=== PATIENT | male | born 1980 | race Two or more races ===

== ENCOUNTER 2018-07-29 14:43 | Emergency (ER) | payer SELFPAY ==
[~2018-07-29] VITALS: Ht 172.7 cm; Wt 81.6 kg
--- NOTE | 2018-07-29 15:09 | NUR ---
ED Nurse Note: patient walked into ED c/o hematuria that started this morning. pain at left anterior lower abdoment radiating to his lower back starte this morning.
[2018-07-29] MEDS ORDERED: Isovue-300 100ml vial INJ PRN (15:15)
[2018-07-29] MEDS ORDERED: Morphine Sulfate 4mg/ml Inj (IV/IM USE ONLY) IVP ONE (15:15)
--- NOTE | 2018-07-29 15:15 | NUR ---
ED Nurse Note: patient denies dysuria. urine sent down.
--- NOTE | 2018-07-29 15:18 | Emergency Room Report ---
History of Present Illness General Chief Complaint: Male Urogenital Problems Source: Patient Present Illness HPI 37-year-old male patient presents the ER complaining of hematuria times 1 day. 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 Denies symptoms currently. Denies dysuria. Denies recent sexual activity. Also reports left lower quadrant abdominal pain and left flank pain during this time. Denies history of kidney stones. Denies acute injury or trauma. Denies fever, chest pain, shortness of breath. Denies diarrhea. Reports some constipation symptoms over the past few days. Reports has been able to pass flatus. Reports small amount of stool with bowel movement earlier today, denies blood in stool. Allergies: Coded Allergies: No Known Allergies (Unverified , 07/29/18) Patient History Past Medical History: see triage record Reviewed Nursing Documentation: PMH: Agreed; PSxH: Agreed Nursing Documentation-PMH Past Medical History: No History, Except For Review of Systems All Other Systems: negative except mentioned in HPI Physical Exam Vital Signs Date Time Temp Pulse Resp B/P (MAP) Pulse Ox O2 Delivery O2 Flow Rate FiO2 07/29/18 14:59 98.1 79 16 157/97 97 Room Air Sp02 EP Interpretation: reviewed, normal General Appearance: well appearing, no apparent distress, alert, GCS 15, non- toxic Head: normocephalic, atraumatic Eyes: bilateral eye normal inspection, bilateral eye PERRL ENT: hearing grossly normal, normal pharynx, no angioedema, normal voice, uvula midline, moist mucus membranes Neck: full range of motion Respiratory: lungs clear, normal breath sounds, no rhonchi, no respiratory distress, no accessory muscle use, no wheezing, speaking full sentences Cardiovascular #1: regular rate, rhythm, no edema Gastrointestinal: soft, no mass, non-distended, no guarding, no rebound, tenderness, other - No periumbilical ecchymosis or abdominal bruising Genitourinary: CVA tenderness (L) - Left lower quadrant Musculoskeletal: back normal, digits/nails normal, gait/station normal, normal range of motion, non-tender Neurologic: alert, oriented x3, responsive, motor strength/tone normal, sensory intact Psychiatric: mood/affect normal Skin: no rash Medical Decision Making PA Attestation Dr. Justin is my supervising Physician whom patient management has been discussed with. Diagnostic Impression: Primary Impression: Hematuria Additional Impressions: Cystitis Renal calculi Enlarged prostate Enteritis ER Course Pt. presents to the ED c/o abdominal pain and vomiting. Ddx considered but are not limited to UTI, cholelithiasis, cholecystitis, appendicitis, diverticulitis, constipation, hematoma, STEFANI. Begin abdominal pain workup. Provided patient with pain medication. Vital signs: are WNL, pt. is afebrile ORDERS: CBC, CMP, Lipase, UA, CT abdomen pelvis, Zofran, and morphine pain medication. ER COURSE: CBC normal H&H, no signs of anemia, does not require blood transfusion at this time. CMP unremarkable, BUN and creatinine WNL, kidney function intact Coag studies show elevated APTT consistent with patient history of factor IX deficiency, remainder of coags within normal limits. Does not require transfusion at this time. Lipase WNL UA shows multiple RBCs. Blood type is A positive. Discuss results with patient CT abdomen and pelvis shows perinephric stranding, no ureteral calculi demonstrated, may represent residual changes from stone has passed or possible pyelonephritis or ureteritis. Bilateral nonobstructive intrarenal calculi. Bladder wall thickening which could indicate cystitis. Prostatomegaly.Wall thickening of small bowel loops, could indicate enteritis. Liver benign simple cysts vs bile hamartomas. Discuss results with the patient. Provided patient with copy of results. Instructed patient to followup with PCP and discuss results of report with patient, discuss need for further treatment and referral. Will provide patient with antibiotics to cover for possible cystitis versus pyelonephritis. Patient reports is been able to urinate while in the ER, states that bleeding symptoms have improved, states less blood in urine noted. Drink plenty of fluids and Take Tylenol for enteritis symptoms. Patient reports relief of pain symptoms with medication. Offered patient admission, patient declined, states they are located be discharged home. I believe patient is okay for outpatient treatment, vitals stable, hemodynamically stable. ER precautions given. Follow with primary care provider. DISCHARGE: At this time pt. is stable for d/c to home. Patient resting comfortably, in no acute distress, nontoxic appearing, talking without difficulty. Rx provided to patient. Patient to take medications as instructed Will provide with patient care instructions and any necessary prescriptions. Care plan and follow-up instructions provided. Patient instructed to follow-up with primary care provider in 3 - 5 days. Patient questions asked and answered. Patient reports understanding and agreement to treatment plan. ER precautions given. Patient instructed to return to ER immediately for any new or worsening of symptoms including but not limited to increasing SOB, persistent fever, worsening of pain symptoms, intractable vomiting, blood in stool, urine, and/or emesis. - Please note that this Emergency Department Report was dictated using [employer] per diem technology software, occasionally this can lead to erroneous entry secondary to interpretation by the dictation equipment. Labs Test 07/29/18 15:13 07/29/18 15:22 Urine Color Red Urine Appearance Turbid Urine pH 8 (4.5-8.0) Urine Specific [place] 1.010 (1.005-1.035) Urine Protein 3+ (NEGATIVE) Urine Glucose (UA) Negative (NEGATIVE) Urine Ketones 1+ (NEGATIVE) Urine Blood 5+ (NEGATIVE) Urine Nitrite Negative (NEGATIVE) Urine Bilirubin Negative (NEGATIVE) Urine Urobilinogen 1 MG/DL (0.0-1.0) Urine Leukocyte Esterase 2+ (NEGATIVE) Urine RBC Tntc /HPF (0 - 0) Urine WBC 0-2 /HPF (0 - 0) Urine Squamous Epithelial Cells None /LPF (NONE/OCC) Urine Bacteria None /HPF (NONE) White Blood Count 8.0 K/UL (4.8-10.8) Red Blood Count 5.63 M/UL (4.70-6.10) Hemoglobin 15.7 G/DL (14.2-18.0) Hematocrit 49.4 % (42.0-52.0) Mean Corpuscular Volume 88 FL (80-99) Mean Corpuscular Hemoglobin 28.0 PG (27.0-31.0) Mean Corpuscular Hemoglobin Concent 31.9 G/DL (32.0-36.0) Red Cell Distribution Width 13.7 % (11.6-14.8) Platelet Count 157 K/UL (150-450) Mean Platelet Volume 8.8 FL (6.5-10.1) Neutrophils (%) (Auto) 74.8 % (45.0-75.0) Lymphocytes (%) (Auto) 18.0 % (20.0-45.0) Monocytes (%) (Auto) 5.4 % (1.0-10.0) Eosinophils (%) (Auto) 0.4 % (0.0-3.0) Basophils (%) (Auto) 1.5 % (0.0-2.0) Prothrombin Time 11.3 SEC (9.30-11.50) Prothromb Time International Ratio 1.1 (0.9-1.1) Activated Partial Thromboplast Time 39 SEC (23-33) Sodium Level 139 MMOL/L (136-145) Potassium Level 4.1 MMOL/L (3.5-5.1) Chloride Level 104 MMOL/L (98-107) Carbon Dioxide Level 28 MMOL/L (21-32) Anion Gap 7 mmol/L (5-15) Blood Urea Nitrogen 12 mg/dL (7-18) Creatinine 1.4 MG/DL (0.55-1.30) Estimat Glomerular Filtration Rate 56.4 mL/min (>60) Glucose Level 121 MG/DL (74-106) Calcium Level 8.9 MG/DL (8.5-10.1) Total Bilirubin 0.8 MG/DL (0.2-1.0) Aspartate Amino Transf (AST/SGOT) 5 U/L (15-37) Alanine Aminotransferase (ALT/SGPT) 33 U/L (12-78) Alkaline Phosphatase 60 U/L (46-116) Total Protein 7.1 G/DL (6.4-8.2) Albumin 3.8 G/DL (3.4-5.0) Globulin 3.3 g/dL Albumin/Globulin Ratio 1.2 (1.0-2.7) Lipase 292 U/L (73-393) CT/MRI/US Diagnostic Results CT/MRI/US Diagnostic Results : Imaging Test Ordered: CT abdomen pelvis Impression Impression: Left renal collecting system fullness, ectatic left ureter, periureteral and peripelvic and perinephric fat stranding. No ureteral calculi demonstrated. Findings may represent residual changes from recently passed stone. Alternatively, pyelonephritis/ureteritis could have this appearance. Correlation with clinical and laboratory findings recommended Bilateral nonobstructive small intrarenal calyceal calculi Mild bladder wall thickening, could indicate cystitis Prostatomegaly, degree of which is unusual for patient's age Fluid-filled upper limits of normal caliber small bowel loops, with suggestion of mild wall thickening of several left upper quadrant jejunal loops. Assessment is limited in the absence of enteric contrast, but could indicate enteritis changes Basilar pulmonary parenchymal atelectatic changes and a few small left lower lobe bullae incidentally noted Subcentimeter low-attenuation liver lesions, too small to characterize, most likely benign simple cysts or bile hamartomas. No further follow-up necessary Last Vital Signs Date Time Temp Pulse Resp B/P (MAP) Pulse Ox O2 Delivery O2 Flow Rate FiO2 07/29/18 14:59 98.1 79 16 157/97 97 Room Air Status: improved Disposition: HOME, SELF-CARE Condition: Stable Scripts Acetaminophen* (TYLENOL EXTRA STRENGTH*) 500 Mg Tablet 500 MG ORAL Q8H PRN for Prn Headache/Temp > 101, #30 TAB 0 Refills Prov: Leoncio Michel 07/29/18 Cephalexin* (KEFLEX*) 500 Mg Capsule 500 MG ORAL EVERY 12 HOURS, #14 CAP 0 Refills Prov: Leoncio Michel 07/29/18 Patient Instructions: Abdominal Pain, Adult, Benign Prostatic Hyperplasia, Diarrhea, Adult, [id number], Hematuria, Adult, Kidney Stones, [id number] Additional Instructions: Followup with primary care provider in 3 -5 days. Follow-up with telegraph office route aide. Discussed CT report findings with primary care provider and further referral and treatment as needed. Drink plenty fluids. Take medications as directed. Patient questions asked and answered. ER precautions given, patient instructed to return to ER immediately for any new or worsening of symptoms including but not limited to worsening of bleeding symptoms, syncope, dizziness, abdominal pain, blood in stool or diarrhea. Leoncio Michel Jul 29, 2018 15:17
[2018-07-29 15:34] LABS: BASOPHILS % (AUTO) 1.5 % (0.0-2.0); EOSINOPHILS % (AUTO) 0.4 % (0.0-3.0); HEMATOCRIT 49.4 % (42.0-52.0); HEMOGLOBIN 15.7 G/DL (14.2-18.0); MEAN CORPUSCULAR VOLUME 88 FL (80-99); MONOCYTES % (AUTO) 5.4 % (1.0-10.0); NEUTROPHILS % (AUTO) 74.8 % (45.0-75.0); PLATELET COUNT 157 K/UL (150-450); RED BLOOD COUNT 5.63 M/UL (4.70-6.10); RED CELL DISTRIBUTION WIDTH 13.7 % (11.6-14.8)
[2018-07-29 15:40] VITALS: BP 157/97
[2018-07-29 15:46] LABS: APPEARANCE,URINE TURBID; BILIRUBIN, URINE NEGATIVE (NEGATIVE); GLUCOSE, URINE (UA) NEGATIVE (NEGATIVE); KETONES,URINE 1+ (NEGATIVE); LEUKOCYTE ESTERASE ,URINE 2+ (NEGATIVE); NITRITE,URINE NEGATIVE (NEGATIVE); PH,URINE 8 (4.5-8.0); PROTEIN,URINE 3+ (NEGATIVE); UROBILINOGEN,URINE 1 MG/DL (0.0-1.0)
[2018-07-29 15:47] LABS: INR 1.1 (0.9-1.1)
[2018-07-29 15:48] LABS: COLOR,URINE RED
[2018-07-29 15:49] LABS: ANION GAP 7 mmol/L (5-15); BLOOD UREA NITROGEN 12 mg/dL (7-18); CALCIUM 8.9 MG/DL (8.5-10.1); CARBON DIOXIDE 28 MMOL/L (21-32); CHLORIDE 104 MMOL/L (98-107); CREATININE 1.4 MG/DL (0.55-1.30); POTASSIUM 4.1 MMOL/L (3.5-5.1); SODIUM 139 MMOL/L (136-145)
--- NOTE | 2018-07-29 15:51 | NUR ---
ED Nurse Note: patient taken down for cT
[2018-07-29 15:54] LABS: ALANINE AMINOTRANSFERASE 33 U/L (12-78); ALBUMIN 3.8 G/DL (3.4-5.0); ALBUMIN/GLOBULIN RATIO 1.2 (1.0-2.7); ALKALINE PHOSPHATASE 60 U/L (46-116); ASPARTATE AMINO TRANSFERASE 5 U/L (15-37); BILIRUBIN,TOTAL 0.8 MG/DL (0.2-1.0)
--- NOTE | 2018-07-29 16:05 | NUR ---
ED Nurse Note: patient came back from CT girlfriend at bedside
--- NOTE | 2018-07-29 16:52 | Diagnostic Imaging Report ---
Indication: Hematuria, left lower quadrant and left flank pain Technique: Spiral acquisitions obtained through the abdomen and pelvis. No oral or IV contrast utilized, per urinary stone protocol. Multiplanar reconstructions were generated. Total dose length product 822.4 mGycm. CTDIvol(s) 15.23 mGy. Dose reduction achieved using automated exposure control Comparison: none Findings: There is minimal fullness of the left renal collecting system. The left ureter is ectatic, and there is periureteral and perinephric pelvic fat stranding. There is also perinephric fat stranding which is asymmetric compared to the right side. No definite ureteral calculi. 2 small intrarenal calyceal calculi are noted in the upper pole. Small upper pole intrarenal calyceal calculi are also seen on the right. No right hydronephrosis or hydroureter. No bladder calculi are demonstrated. The bladder appears somewhat thick walled, however. The prostate is unusually large for age, measuring 6.3 cm transverse by 3.8 cm AP. Lack of IV contrast limits assessment of the renal parenchyma. No gross renal parenchymal mass or cyst demonstrated. Lack of IV contrast limits assessment of the other solid organs. The liver demonstrates multiple subcentimeter low-attenuation lesions which are too small to characterize. The gallbladder, bile ducts, pancreas, spleen, adrenals are unremarkable. No pelvic mass or adenopathy. The appendix is normal. No evidence of diverticulosis or diverticulitis. Small bowel loops are diffusely fluid-filled and upper limits of normal in caliber. There is suggestion of at least mild wall thickening of several left upper quadrant jejunal loops. No free or loculated intraperitoneal gas or fluid is evident. Distal esophagus, stomach, duodenum are unremarkable. Note, however, the stomach is markedly distended with food The included lung bases demonstrate bilateral posterior dependent atelectatic changes and a few small bullae on the left. The bones are unremarkable Impression: Left renal collecting system fullness, ectatic left ureter, periureteral and peripelvic and perinephric fat stranding. No ureteral calculi demonstrated. Findings may represent residual changes from recently passed stone. Alternatively, pyelonephritis/ureteritis could have this appearance. Correlation with clinical and laboratory findings recommended Bilateral nonobstructive small intrarenal calyceal calculi Mild bladder wall thickening, could indicate cystitis Prostatomegaly, degree of which is unusual for patient's age Fluid-filled upper limits of normal caliber small bowel loops, with suggestion of mild wall thickening of several left upper quadrant jejunal loops. Assessment is limited in the absence of enteric contrast, but could indicate enteritis changes Basilar pulmonary parenchymal atelectatic changes and a few small left lower lobe bullae incidentally noted Subcentimeter low-attenuation liver lesions, too small to characterize, most likely benign simple cysts or bile hamartomas. No further follow-up necessary The CT scanner at [facility] is accredited by the [employer] and the scans are performed using protocols designed to limit radiation exposure to as low as reasonably achievable to attain images of sufficient resolution adequate for diagnostic evaluation.
[2018-07-29] MEDS ORDERED: Dicyclomine HCl 10mg/5ml oral soln ORAL ONE (17:45)
[2018-07-29] MEDS ORDERED: CEPHALEXIN500 MG ORAL (17:51)
[2018-07-29] MEDS ORDERED: TYLENOL EXTRA500 MG ORAL (17:51)
== END 2018-07-29 19:00 | disposition home or self-care (01) ==
LOC: EMR 15:50
DX: N30.91 Cystitis, unspecified with hematuria (principal); N20.0 Calculus of kidney; N40.0 Benign prostatic hyperplasia without lower urinary tract symptoms; K52.9 Noninfective gastroenteritis and colitis, unspecified
CPT/HCPCS: 36415; 74176; 80053; 81003; 83690; 85025; 85610; 85730; 86850; 86900; 86901; 96361; 96374; 96375; 99284; J2270; J2405